=== PATIENT | male | born 1950 | race Caucasian/White ===

== ENCOUNTER 2017-12-13 12:47 | Day surgery (SDC) | payer OTHER ==
[~2017-12-13] VITALS: Ht 172.7 cm; Wt 53.5 kg
[~2017-12-13 12:47] MED LIST: ADVIL,NUPRIN,M200 MG PO; ARTIFICIAL TEAR1510 BOTH EYES; ASPIRIN81 M2 PO; SPIRIVA RESPIMAT4 GM IH; TENORMIN25 MG PO; VENTOLIN HFA18 GM IH; VITAMIN D31000 UNIT PO
[2017-12-13 13:12] LABS: ALBUMIN 3.8 g/dL (3.2-4.8)
[2017-12-13 13:13] LABS: CHLORIDE 105 mEq/L (99-109); POTASSIUM 4.9 mEq/L (3.7-5.4); SODIUM 138 mEq/L (136-147)
[2017-12-13 13:15] LABS: GLUCOSE 97 mg/dL (70-99); TOTAL PROTEIN 7.4 g/dL (6.4-8.3)
[2017-12-13 13:17] LABS: TOTAL BILIRUBIN 1.2 mg/dL (0.0-1.0)
[2017-12-13 13:18] LABS: ALKALINE PHOSPHATASE 140 IU/L (3-129); SERUM ETHYL ALCOHOL < 10 mg/dL
[2017-12-13 13:19] LABS: CREATININE 0.8 mg/dL (0.6-1.3); GFR ESTIMATE (CALCULATED) > 59 mL/min/ (58.99-99999)
[2017-12-13 13:20] LABS: AST (GOT) 29 IU/L (2-34); UREA NITROGEN (BUN) 10 mg/dL (9-23)
[2017-12-13] MEDS ORDERED: AMLODIPINE BES2.5 MG PO (13:20)
[2017-12-13 13:21] VITALS: BP 164/71
[2017-12-13 13:22] LABS: ALT (GPT) 11 IU/L (3-49)
[2017-12-13 16:58] VITALS: BP 146/67
[2017-12-13 17:36] VITALS: BP 149/66
== END 2017-12-13 17:50 | disposition home or self-care (01) ==
LOC: SDC 12:47
PROVIDERS: Orthopaedic Surgery Hand Surgery
DX: M24.445 Recurrent dislocation, left finger (principal); M19.042 Primary osteoarthritis, left hand; I10 Essential (primary) hypertension; J44.9 Chronic obstructive pulmonary disease, unspecified; E78.5 Hyperlipidemia, unspecified; G47.30 Sleep apnea, unspecified; Z79.82 Long term (current) use of aspirin
CPT/HCPCS: 73140; 76000; 80053; G0480; J0690; J2250; J3010; S0020